=== PATIENT | male | born 1940 | race Caucasian/White ===

== ENCOUNTER 2017-01-09 11:04 | Observation (INO) | payer OTHER ==
[2017-01-02 10:05] LABS: WBC (NOT ORDERED) (RFLEX) 0 (0-5)
[2017-01-02 10:22] LABS: HEMOGLOBIN 11.8 g/dL (13.6-17.8)
[2017-01-02 10:26] LABS: HEMATOCRIT 35.5 % (40.0-51.0)
[2017-01-02 10:33] LABS: CALCIUM, SERUM 8.3 MG/DL (8.5-10.4); CHLORIDE, SERUM 112 MMOL/L (96-112); CO2 (CARBON DIOXIDE) 23 MMOL/L (24-34); CREATININE 2.44 MG/DL (0.70-1.30); GFR AFRICAN AMERICAN 29 ML/MIN (>=60); GFR NON AFRICAN AMERICAN 25 ML/MIN (>=60); GLUCOSE, SERUM 78 MG/DL (60-99); POTASSIUM, SERUM 4.5 MMOL/L (3.5-5.3); SODIUM, SERUM 144 MMOL/L (135-148)
[2017-01-02 10:34] LABS: BUN (BLOOD UREA NITROGEN) 30 MG/DL (6-23)
[2017-01-02 11:30] LABS: ASCORBIC ACID (UR NOT ORDER) NEG (NEG); BILIRUBIN, URINE NEGATIVE (NEG); KETONE, URINE NEGATIVE (NEG); LEUKOCYTE ESTERASE(NOT OR NEG (NEG)
--- NOTE | ~2017-01-09 | OP ---
Record Of Operation [facility] [address] [place]. [address] NAME: HERBERT LEIGH : 40 STATUS : ADM Lucy PAT#: [id number] AGE: 76 ADM/REG DATE : 01/09/17 MR#: [id number] REPORT SERV DATE: 01/09/17 DICTATED BY: PAKO PARSONS JR. DATE: 01/09/17 REPORT STATUS : Draft TRANSCRIBED BY: MODL DATE: 01/09/17 DATE OF PROCEDURE: 01/09/2017 SURGEON: Pako Parsons M.D. PREOPERATIVE DIAGNOSIS: Bladder tumor x2 and benign prostate hypertrophy. POSTOPERATIVE DIAGNOSIS: Bladder tumor x2 and benign prostate hypertrophy. PROCEDURE PERFORMED: Transurethral resection of bladder tumor x2, and transurethral resection of the prostate, and left retrograde pyelogram. COMPLICATIONS: None. CONSULTATIONS: None. ANESTHESIA: General with an endotracheal tube. SPECIMENS: Bladder tumor on the right bladder wall from a diverticulum, and right bladder neck bladder tumor, and prostate chips. DRAINS: A 24-Citizen Of [place] 3-way Noyola catheter. ESTIMATED BLOOD LOSS: 5 mL. INDICATION: Mr. 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 He has had one other recurrence in the bladder and on surveillance cystoscopy, he was noted to have a small tumor less than 2 cm along the right bladder wall on the opening of the diverticulum, as well as another small tumor noted in the bladder neck area on the right side. He also has benign prostatic hypertrophy, with large amount of trabeculation, and diverticulosis of the bladder, and he also will have a TURP today along with TURBT. PROCEDURE IN DETAIL: After the patient was identified and proper informed consent was obtained, he was taken to the operating room. General anesthesia was performed without complication using an endotracheal tube. He was then prepped and draped in normal sterile fashion in the lithotomy position. Cystoscopic examination of the urethra reveals a normal penile and bulbous urethra. The prostatic urethra showed a 3.5 to 4 cm prostatic urethral length with trilobar hypertrophy. His bladder mucosa again was severely trabeculated with a lot of diverticula present. The two tumors seen in the office were also once again noted. The left ureteral orifice was identified in its normal position and normal shape, somewhat dilated. The right ureteral orifice was absent. A retrograde pyelogram with a 5-Citizen Of [place] open-ended catheter was performed and he had some physiologic dilation of the ureter, but normal collecting system without hydronephrosis or caliectasis. There were noted filling defects noted and overall normal retrograde pyelogram. I then removed the cystoscope and Record Of Operation [address] [place]. [address] NAME: HERBERT LEIGH : 40 STATUS : ADM Lucy PAT#: [id number] AGE: 76 ADM/REG DATE : 01/09/17 MR#: [id number] REPORT SERV DATE: 01/09/17 DICTATED BY: PAKO PARSONS JR. DATE: 01/09/17 REPORT STATUS : Draft TRANSCRIBED BY: GUY DATE: 01/09/17 replaced it with a resectoscope. I resected the bladder neck tumor as well as the tumor at the site of the diverticulum down to muscular fibers. I cauterized these areas using electrocautery and sent the specimen separate to the pathologist. I then performed a TURP in a standard fashion on the right and left lateral lobes down to surgical capsule from the bladder neck back to the site of the verumontanum. Once, I had the lateral lobes resected, I then performed the same dissection on the median lobe from bladder neck down to verumontanum to the surgical capsule of the prostate. All the chips were removed using an Ellik evacuator. Hemostasis was achieved using electrocautery. A 24-Citizen Of [place] 3-way Noyola catheter was inserted with 50 mL of sterile water in the balloon, placed to light traction, as well as to slow continuous bladder irrigation. The urine was clear. I then left the operating room with the patient still under general anesthesia. Dr. Tinoco will do his hernia repair at this time. ALLIE/GUY Pako Parsons Jr., M.D. / [id number] CC: Se Vasquez Jr., DO
--- NOTE | ~2017-01-09 | OP ---
Record Of Operation [facility] [address] [place]. [address] NAME: HERBERT LEIGH : 40 STATUS : ADM Lucy PAT#: [id number] AGE: 76 ADM/REG DATE : 01/09/17 MR#: [id number] REPORT SERV DATE: 01/09/17 DICTATED BY: SALAZAR JC DATE: 01/09/17 REPORT STATUS : Draft TRANSCRIBED BY: MODL DATE: 01/09/17 DATE OF PROCEDURE: 01/09/2017 PREOPERATIVE DIAGNOSIS: Incarcerated epigastric hernia. POSTOPERATIVE DIAGNOSIS: Incarcerated epigastric hernia. PROCEDURE: Reduction and primary repair of incarcerated epigastric hernia. SURGEON: Salazar Jc M.D. DESCRIPTION OF OPERATIVE PROCEDURE: Dr. Pako Parsons had proceeded with the TUR under fluoro. After Dr. Parsons was through with his portion of the procedure, the patient was repositioned on the operating table and the skin of the abdomen was scrubbed, prepped, and draped in the usual sterile fashion. Epigastric hernia was palpated below the xiphoid. 0.5% Marcaine with epinephrine was utilized as supplemental local anesthesia. A vertical incision was made dissecting through the skin to the incarcerated preperitoneal fat. This was excised leaving a less than 5 mm defect in the midline. Two separately placed sutures of 0 Ethibond were utilized to repair the hernia in a "vest- over-pants" interrupted vertical mattress fashion, drawn in the cephalad aspect of the midline fascia over the caudad aspect. Subcutaneous tissue was irrigated and closed in two layers with interrupted 4-0 Vicryl, running subcuticular stitch 4-0 Vicryl for the skin. Dermabond skin adhesive placed. The patient tolerated the procedure well and was returned to PACU in stable condition. At the termination of procedure, sponge, needle, lap, and instrument counts were correct x3. ESTIMATED BLOOD LOSS: Less than 5 mL. WR/MODL Salazar Jc M.D. / [id number] CC: Se Vasquez Jr., DO
[~2017-01-09 11:04] MED LIST: ACT300 PO; ADVIL PO; CIP5 PO; CO Q-10100 MG PO; FISH-EPA1000 MG PO; FLOMAX4 PO; LORTAB 5 PO; Multiple Vit Tab; PCET PO; PRILO PO; PROSCAR5 PO; PYR200 PO; SIMVASTATIN; STOOL SOFTEN100 MG PO; UNISOM25 MG PO; ZOCOR40 PO
[2017-01-10 06:28] LABS: HEMATOCRIT 34.2 % (40.0-51.0); HEMOGLOBIN 11.5 g/dL (13.6-17.8)
[2017-01-10] MEDS ORDERED: PCET PO (11:58)
[2017-01-10] MEDS ORDERED: DSS PO (11:59)
== END 2017-01-10 18:44 | disposition home or self-care (01) ==
LOC: SDC 11:04 → 4SO 16:56
PROVIDERS: Specialist; Urology
PROC: 0WQF0ZZ Repair Abdominal Wall, Open Approach (ICD-10-PCS; principal; 2017-01-09 12:45)
PROC: 0VT08ZZ Resection of Prostate, Via Natural or Artificial Opening Endoscopic (ICD-10-PCS; 2017-01-09 12:45)
PROC: 0T5B8ZZ Destruction of Bladder, Via Natural or Artificial Opening Endoscopic (ICD-10-PCS; 2017-01-09 12:45)
PROC: BT1FYZZ Fluoroscopy of Left Kidney, Ureter and Bladder using Other Contrast (ICD-10-PCS; 2017-01-09 12:45)
DX: C67.5 Malignant neoplasm of bladder neck (principal); K43.6 Other and unspecified ventral hernia with obstruction, without gangrene; N40.0 Benign prostatic hyperplasia without lower urinary tract symptoms; E78.5 Hyperlipidemia, unspecified; Z85.528 Personal history of other malignant neoplasm of kidney; Z79.891 Long term (current) use of opiate analgesic; Z88.5 Allergy status to narcotic agent; Z88.8 Allergy status to other drugs, medicaments and biological substances; Z90.5 Acquired absence of kidney; Z98.890 Other specified postprocedural states
CPT/HCPCS: 36415; 74420; 80048; 81001; 84295; 85014; 85018; 86850; 86900; 86901; 88305; 88307; 93005; 96372; A9270-GY; C1758; G0378; J0690; J2405; J2710; J3010; Q9967